=== PATIENT | female | born 1995 | race Caucasian/White ===

== ENCOUNTER 2019-10-20 10:31 | Emergency (ER) | payer OTHER ==
[~2019-10-20] VITALS: Ht 172.7 cm; Wt 61.7 kg
--- NOTE | 2019-10-20 10:40 | NUR ---
ED Nurse Note: pt arrived to ed c/o sore throat x 3 days. pt has 99.6 Temp at triage. pt denies other symptoms at the time and states that her throat bothers her the most.
[2019-10-20 10:41] VITALS: BP 104/60
[2019-10-20] MEDS ORDERED: guaiFENesin 100mg/5ml Liq ud ORAL ONE (11:15)
[2019-10-20] MEDS ORDERED: IBUPROFEN400 MG ORAL (11:17)
[2019-10-20] MEDS ORDERED: GUAIFENESIN DM118 M1 ORAL (11:17)
--- NOTE | 2019-10-20 11:20 | NUR ---
ED Nurse Note: pt went to restroom and obtained urine sample. urine specimen sent to lab
[2019-10-20] MEDS ORDERED: guaiFENesin 100mg/5ml Liq ud ONE (11:24)
--- NOTE | 2019-10-20 11:30 | NUR ---
ER DISCHARGE NOTE: Patient is cleared to be discharged per ERMD, pt is aox4, on room air, with stable vital signs. pt was given dc and prescription instructions, pt was able to verbalize understanding, pt id bandremoved. pt is able to ambulate with steady gait. pt took all belongings.
[2019-10-20 11:33] VITALS: BP 107/62
[2019-10-20 11:34] LABS: APPEARANCE,URINE CLEAR; BILIRUBIN, URINE NEGATIVE (NEGATIVE); COLOR,URINE PALE YELLOW; GLUCOSE, URINE (UA) NEGATIVE (NEGATIVE); KETONES,URINE NEGATIVE (NEGATIVE); LEUKOCYTE ESTERASE ,URINE 1+ (NEGATIVE); NITRITE,URINE NEGATIVE (NEGATIVE); PH,URINE 8 (4.5-8.0); PROTEIN,URINE NEGATIVE (NEGATIVE); UROBILINOGEN,URINE NORMAL MG/DL (0.0-1.0)
--- NOTE | 2019-11-11 21:03 | Emergency Room Report ---
History of Present Illness General Chief Complaint: Flu Like Symptoms Source: Patient Present Illness HPI Patient is a 24-year-old female presents after increased generalized body aches for approximately 3 to 4 days. Reports having nonproductive cough as well as sore throat. Denies any vomiting or diarrhea. Denies any chest pain. Denies any recent leg pain or swelling. Denies being . Had not been having any photophobia. Allergies: Coded Allergies: No Known Allergies (Unverified , 10/20/19) Patient History Past Medical History: see triage record Last Menstrual Period: 3 weeks ago Now: No : 0 Para: 0 Reviewed Nursing Documentation: PMH: Agreed; PSxH: Agreed Nursing Documentation-PMH Past Medical History: No Stated History Physical Exam General Appearance: well appearing, no apparent distress, alert, GCS 15 Head: normocephalic, atraumatic ENT: hearing grossly normal, normal voice, uvula midline, pharyngeal erythema Neck: full range of motion, supple Respiratory: lungs clear, normal breath sounds, no respiratory distress, speaking full sentences Cardiovascular #1: normal inspection, regular rate, rhythm, no edema Gastrointestinal: normal inspection Musculoskeletal: normal inspection, gait/station normal, normal range of motion , no calf tenderness Neurologic: alert, motor strength/tone normal, 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 Differential diagnosis includes not limited to viral respiratory infection, tonsillitis, bacterial pharyngitis, urinary tract infection among others. Patient has a benign exam and does not appear to require any imaging or laboratory testing at this time. Urinalysis showed no evidence of infection. test was negative. Patient presented influenza-like illness. She does not appear to be within the time Tamiflu would be effective. She was given prescription for medications for symptomatic treatment. The patient is advised to follow up with primary care doctor in 1-2 days. Patient is advised to return if any worsening condition or if any changes in status that are concerning. This report is dictated with [id number] electronic data processing auditor software which may occasionally lead to discrepancies related to use of this software. Labs Test 10/20/19 11:26 Urine Color Pale yellow Urine Appearance Clear Urine pH 8 (4.5-8.0) Urine Specific [place] 1.010 (1.005-1.035) Urine Protein Negative (NEGATIVE) Urine Glucose (UA) Negative (NEGATIVE) Urine Ketones Negative (NEGATIVE) Urine Blood Negative (NEGATIVE) Urine Nitrite Negative (NEGATIVE) Urine Bilirubin Negative (NEGATIVE) Urine Urobilinogen Normal MG/DL (0.0-1.0) Urine Leukocyte Esterase 1+ (NEGATIVE) Urine RBC 0-2 /HPF (0 - 2) Urine WBC 0-2 /HPF (0 - 2) Urine Squamous Epithelial Cells Moderate /LPF (NONE/OCC) Urine Bacteria Occasional /HPF (NONE) Urine HCG, Qualitative Negative (NEGATIVE) Status: improved Disposition: HOME, SELF-CARE Condition: Stable Scripts Ibuprofen* (MOTRIN*) 400 Mg Tablet 400 MG ORAL Q8H, #30 TAB 0 Refills Prov: Marvel Negrete MD 10/20/19 Guaifenesin/Dextromethorphan* (Guaifenesin Dm Syrup*) 5 Ml Syrup 5 ML ORAL Q6H PRN for FOR COUGH, #118 ML Prov: Marvel Negrete MD 10/20/19 Departure Forms: Return to Work Return to Work in (Days): 3 Patient Instructions: Influenza, Adult Marvel Negrete MD Nov 11, 2019 21:03
== END 2019-10-20 11:30 | disposition home or self-care (01) ==
LOC: EMR 11:05
DX: R07.0 Pain in throat (principal); R05 Cough; R51 Headache
CPT/HCPCS: 81003; 81025; 99283